=== PATIENT | male | born 1940 | race Caucasian/White ===

== ENCOUNTER 2016-11-28 16:49 | Emergency (ER) | payer OTHER, MEDICARE ==
[~2016-11-28] VITALS: Ht 182.9 cm; Wt 95.0 kg
[~2016-11-28 16:49] MED LIST: ALLERGY EYE D0.025 % OU; AMMONIUM LAC EX; ATORVASTATIN CA40 MG PO; B-121000 MC1 OR; BACLOFEN10 MG PO; BAYER ASPIRIN E81 MG PO; BAYER LOW81 MG OR; BROMOCRIPTIN2.5 M1 PO; COLACE100 MG PO; COZAAR25 MG PO; CRESTOR40 MG OR; DIABETA5 MG OR; DILANTIN100 MG OR; DILANTIN30 MG OR; DITROPAN XL10 MG OR; DITROPAN XL5 MG PO; DITROPAN5 MG OR; DOCUSATE SOD100 M2 OR; EPIPEN0.3 MG IM; FINASTERIDE5 MG OR; FINASTERIDE5 MG PO; FOLIC ACID1 MG PO; GLUCOPHAGE1000 MG OR; GLUCOTROL XL2.5 MG PO; GLYBURIDE2.5 MG OR; KEPPRA500 M1 OR; LEVETIRACETAM500 MG PO; LORTAB 1010 MG PO; LORTAB 7.5 PO; LOSARTAN POT25 MG PO; MAGNESIUM-OX400 MG PO; MELOXICAM7.5 MG PO; METFORMIN1000 MG OR; METFORMIN500 MG PO; NASONEX50 MCG/AC; NASONEX50 MCG/AC NAS; OMEPRAZOLE20 MG OR; OMEPRAZOLE20 MG PO; OXYBUTYNIN5 M1 OR; PAIN RELIEF325 MG OR; PEG 401 OU; PERCOCET 5/325M1 TAB OR; PLAVIX75 MG PO; PREMIUM LIDOCAINE5 % TD; PRILOSEC20 MG/CAP PO; PROSCAR OR; RELIEF PO; RESTORIL30 MG OR; SERTRALINE50 MG OR; SKELAXIN800 MG OR; TEMAZEPAM30 MG PO; TYLENOL325 MG PO; ULTRAM50 M1 PO; ULTRAM50 MG OR; VITAMIN B-12500 MCG PO; VITAMIN D-31000 UNI1 PO; VITAMIN D3400 UNIT OR; VYTORIN1 TA1 OR; XANAX0.25 MG PO; ZOLOFT50 MG PO; [UNRECOGNIZED DRUG - OTHER] DT; [UNRECOGNIZED DRUG - OTHER] MT; [UNRECOGNIZED DRUG - OTHER] OR; [UNRECOGNIZED DRUG - OTHER] PO
[2016-11-28] MEDS ORDERED: TRAMADOL HYDROC50 MG PO (18:32)
[2016-11-28 18:52] VITALS: BP 145/87
== END 2016-11-28 18:52 | disposition home or self-care (01) | DRG 156 ==
LOC: ED 16:49
DX: S02.2XXA Fracture of nasal bones, initial encounter for closed fracture (principal); S00.83XA Contusion of other part of head, initial encounter; W05.0XXA Fall from non-moving wheelchair, initial encounter; Y93.E9 Activity, other interior property and clothing maintenance; Y92.009 Unspecified place in unspecified non-institutional (private) residence as the place of occurrence of the external cause

== ENCOUNTER 2018-09-06 04:11 | Observation (INO) | payer OTHER, MEDICARE ==
[~2018-09-06] VITALS: Ht 182.9 cm; Wt 91.3 kg
[~2018-09-06 04:11] MED LIST changes: +TRAMADOL HYDROC50 MG PO
--- NOTE | 2018-09-06 04:37 | NUR ---
ASSISTED PT OUT OF CAR. TO RM 9 EKG ACCOMPLISHED. PT C/O EPIGASTRIC PAIN SINCE YESTERDAY.
[2018-09-06 04:52] LABS: HEMATOCRIT 46.2 % (39.0-50.0); HEMOGLOBIN 14.9 g/dl (14.0-18.0); IMMATURE GRANULOCYTES 0.7 % (0.0-5.0); MEAN CORPUSCULAR HGB 28.7 pG CALC (26.0-32.0); MEAN CORPUSCULAR HGB CONC 32.3 g/L CALC (32.0-36.0); NEUT# 5.36 thou/uL (1.82-7.42); RED BLOOD COUNT 5.19 mill/uL (4.70-6.10); RED CELL DISTRI WIDTH 12.9 % (11.5-15.5)
[2018-09-06 05:06] LABS: ALBUMIN 4.1 g/dL (3.2-5.0); ALKALINE PHOSPHATASE 62 u/l (38-126); AMYLASE 40 u/l (30-110); ANION GAP 15 (6-22 (CALC)); BILIRUBIN, TOTAL 0.5 mg/dL (0.0-1.4); BUN 12 mg/dL (8-23); BUN/CREATININE RATIO 19 (12-20 (CALC)); CARBON DIOXIDE 24 mmol/l (22-30); CHLORIDE 105 mmol/l (95-108); CREATININE 0.6 mg/dL (0.7-1.3); GFR > 60 ML/MIN (>=60 (CALC)); GFR FOR AFR.AMER. > 60 ML/MIN (>=60 (CALC)); LIPASE 53 u/l (23-300); POTASSIUM 4.6 mmol/l (3.5-5.1); SGOT/AST 26 u/l (19-48); SODIUM 140 mmol/l (137-146); TOTAL PROTEIN 7.1 g/dL (6.3-8.2)
--- NOTE | 2018-09-06 05:10 | NUR ---
W/P/D SKIN NO N/V VOIDS 200CC LT CLEAR YELLOW URINE.REPOSITIONED IN BED WARM BLANKET
[2018-09-06] MEDS ORDERED: AVODART0.5 MG PO (05:31)
[2018-09-06] MEDS ORDERED: GABAPENTIN600 MG PO (05:31)
[2018-09-06 05:44] LABS: INTERNATIONAL NORMALIZED RATIO 2.9 RATIO (0.7-1.3); PROTHROMBIN TIME 29.8 SECONDS (9.0-12.5)
--- NOTE | 2018-09-06 06:43 | NUR ---
NO V,NO C/O PAIN W/P/D SKIN IN NO APPARENT DISCOMFORT OR DISTRESS
[2018-09-06 06:50] LABS: URINE BILIRUBIN - DIPSTICK NEGATIVE (NEGATIVE); URINE BLOOD DIPSTICK NEGATIVE (NEGATIVE); URINE COLOR YELLOW; URINE GLUCOSE - DIPSTICK NEGATIVE (NEGATIVE); URINE KETONE NEGATIVE (NEGATIVE); URINE LEUK ESTERASE NEGATIVE (NEGATIVE); URINE NITRITE - DIPSTICK NEGATIVE (Negative); URINE PROTEIN - DIPSTICK NEGATIVE (NEG-TRACE); URINE SPECIFIC GRAVITY <=1.005; URINE UROBILINOGEN - DIPSTICK 0.2 E.U./dL (0.2)
--- NOTE | 2018-09-06 06:51 | NUR ---
REPORT RECEIVED FROM FABRICE DOZIER.
[2018-09-06 06:56] LABS: MYOGLOBIN 36 ng/mL (0 - 121)
--- NOTE | 2018-09-06 07:08 | NUR ---
AT BEDSIDE TO DISCUSS RESULTS.
--- NOTE | 2018-09-06 07:15 | NUR ---
PT REPORT RECEIVED FROM FABRICE HARRIS. PT RESTING IN BED. NO S/S OF DISTRESS. CALL LIGHT IN REACH. WILL CONTINUE TO MONITOR.
--- NOTE | 2018-09-06 07:18 | NUR ---
PATIENT RESTING ON STRETCHER ALERT AND ORIENTED X3, REPORTS EPIGASTIC PAIN 5/10 STARTING LAST PM. INFORMED OF PLAN OF CARE. VERBAL UNDERSTANDING. AT BEDSIDE. WILL CONTINUE TO MONITOR.
--- NOTE | 2018-09-06 07:39 | NUR ---
REPORT GIVEN TO STEF MATA.
--- NOTE | 2018-09-06 07:45 | NUR ---
PATIENT TRANSPORTED TO [facility] VIA STRETCHER WITH TELE IN PLACE. STEF MATA AT BEDSIDE. CARE RELINQUISED. ALL BELONGINGS SENT TO [facility] WITH PATIENT.
--- NOTE | 2018-09-06 08:55 | NUR ---
PT TRANSPORTED TO [facility] VIA STRETCHER ACCOMPIANED BY FABRICE CAZARES AND SPOUSE. PT TRANSFERRED TO BED FROM STRETCHER W/ ASSISTANCE OF STAFF. VS DONE. ASSESSMENT COMPLETE. PT A/O X3. HX OF CVA, RT SIDED PARALYSIS. SPEECH IS SLIGHTLY SLUURED. PT ALSO HAS DYSPHASIA. PERRLA. RESP EVEN AND UNLABORED. LUNG SOUNDS CLEAR. BOWEL SOUNDS ACTIVE X4. PT C/O SOME EPIGASTRIC PAIN. LAST BM 09/05/18. STRONG RADIAL AND PEDAL PULSES. PT DOES HAVE SOME HEALED SCARS TO BOTH KNEES AND DOWN RT LEG. PT DENIES ANY FURTHER NEEDS. POC DISCUSSED. SAFETY PRECAUTIONS IN PLACE. CALL LIGHT IN REACH. WILL CONTINUE TO MONITOR.
--- NOTE | 2018-09-06 12:39 | NUR ---
PT RESTING IN BED. TELE IN PLACE. NO C/O PAIN OR NEEDS. CALL LIGHT IN REACH. WILL CONTINUE TO MONITOR.
[2018-09-06 15:38] VITALS: BP 121/62
--- NOTE | 2018-09-06 18:20 | NUR ---
PT TRANSPORTED TO CT VIA WHEELCHAIR ACCOMPIANED BY FIELD REPRESENTATIVES DIRECTOR IN STABLE CONDITION
--- NOTE | 2018-09-06 18:42 | NUR ---
PT TRANSPORTED BACK FROM CT VIA WHEELCHAIR ACCOMPIANED BY LEIF
[2018-09-06 18:53] VITALS: BP 116/62
--- NOTE | 2018-09-06 19:45 | NUR ---
PATIENT RESTING IN BED AT THIS TIME-AWAKE ALERT AND ORIENTEDX3. AT BEDSIDE. PATIENT WITH H/O CVA WITH RIGHT SIDE DEFICIT. RIGHT HAND CONTRACTURE. SLIGHTLY SLURRED SPEECH. PATIENT ALSO WITH HISTORY OF SEIZURES AND SIDERAILS PADDED FOR SEIZURE PRECAUTIONS. TELE MONITOR IN PLACE. IV SITE TO RIGHT AC-SITE IS HEALTHY WITH GOOD BLOOD RETURN. PATIENT DENIES CHEST PAIN BUT STATES THAT HE HAS EPIGASTRIC/ABD PAIN. ABD IS SOFT WITH BS+. LAST BM WAS YESTERDAY. SAFETY PRECAUTIONS REINFORCED. CALL LIGHT IN REACH. WILL CONT TO MONITOR
--- NOTE | 2018-09-06 21:40 | NUR ---
PATIENT CALLED AND ASSISTED TO THE BR WITHMAX ASSIST AND WALKER. PATIENT HAD LOOSE BM AND VOIDED 150CC IN THE URINAL. ASSISTED BACK TO BED. BS TONIGHT WAS 114-HS SNACK PROVIDED AND PATIENT DID EAT. SAFETY PRECAUTIONS REINFORCED.CALL LIGHT IN REACH. WILL CONT TO MONITOR.
[2018-09-06 23:59] VITALS: BP 109/66
--- NOTE | 2018-09-06 23:59 | NUR ---
APPEARS SLEEPING AT THIS TIME-EYES CLOSED AND RESP EVEN AND UNLABORED. CALL LIGHT IN REACH. WILL CONT TO MONITOR.
[2018-09-07 03:57] VITALS: BP 103/59
--- NOTE | 2018-09-07 05:17 | NUR ---
PATIENT INCONT/SPILLED URINAL IN BED. PATIENT WAS GIVEN COMPLETE BED BATH AND LINEN CHANGE BY MANAGER WELDING'S. PATIENT DID HAVE 400CC IN THE URINAL. TELE MONITOR IN PLACE. SAFETY PRECAUTIONS REINFORCED. CALL LIGHT IN REACH. WILL CONT TO MONITOR.
[2018-09-07 06:07] LABS: HEMATOCRIT 42.1 % (39.0-50.0); HEMOGLOBIN 13.4 g/dl (14.0-18.0); IMMATURE GRANULOCYTES 0.1 % (0.0-5.0); MEAN CORPUSCULAR HGB 28.3 pG CALC (26.0-32.0); MEAN CORPUSCULAR HGB CONC 31.8 g/L CALC (32.0-36.0); NEUT# 3.96 thou/uL (1.82-7.42); RED BLOOD COUNT 4.73 mill/uL (4.70-6.10); RED CELL DISTRI WIDTH 12.9 % (11.5-15.5)
[2018-09-07 06:26] LABS: ALBUMIN 3.3 g/dL (3.2-5.0); ALKALINE PHOSPHATASE 54 u/l (38-126); ANION GAP 9 (6-22 (CALC)); BILIRUBIN, TOTAL 0.8 mg/dL (0.0-1.4); BUN 10 mg/dL (8-23); BUN/CREATININE RATIO 17 (12-20 (CALC)); CARBON DIOXIDE 26 mmol/l (22-30); CHLORIDE 108 mmol/l (95-108); CREATININE 0.6 mg/dL (0.7-1.3); GFR > 60 ML/MIN (>=60 (CALC)); GFR FOR AFR.AMER. > 60 ML/MIN (>=60 (CALC)); MAGNESIUM 1.6 mg/dL (1.6-2.3); POTASSIUM 3.9 mmol/l (3.5-5.1); SGOT/AST 20 u/l (19-48); SODIUM 140 mmol/l (137-146); TOTAL PROTEIN 5.8 g/dL (6.3-8.2)
--- NOTE | 2018-09-07 07:00 | NUR ---
PT REPORT RECEIVED FROM FABRICE HARRIS. PT SLEEPING. NO S/S OF DISTRESS. CALL LIGHT IN REACH. WILL CONTINUE TO MONITOR
[2018-09-07 07:58] VITALS: BP 151/83
--- NOTE | 2018-09-07 07:58 | NUR ---
PT A/O X3. SPEECH IS SLURRED DUE TO HX OF CVA. PT HAS DYSPHASIA. RESP EVEN AND UNLABORED. LUNG SOUNDS CLEAR. TELE IN PLACE. BOWEL SOUNDS ACTIVE X4. PT C/O SHARP EPIGASTRIC PAIN AND SLIGHT SOB. MEDICTAED W/ LORTAB 10 PO. REPOSITIONED FOR COMFORT. STRONG RADIAL PULSES. #20 RAC. FLUSHED AND PATENT. WEAK PEDAL PULSES. PT RT SIDE IS FLACCID DUE TO CVA. SKIN INTACT. PT DENIES ANY FURTHER NEEDS. POC DISCUSSED. SAFETY PRECAUTIONS IN PLACE. SEIZURE PRECAUTIONS. CALL LIGHT IN REACH. WILL CONTINUE TO MONITOR.
[2018-09-07] MEDS ORDERED: PROTONIX40 M2 PO (11:31)
[2018-09-07 11:44] LABS: INTERNATIONAL NORMALIZED RATIO 1.2 RATIO (0.7-1.3); PROTHROMBIN TIME 12.9 SECONDS (9.0-12.5)
--- NOTE | 2018-09-07 11:51 | NUR ---
PT SITTNG IN BED EATING LUNCH. PT STATES EPIGASTRIC PAIN IS NOW A 5 OUT OF 10 ON PAIN SCALE. MEDICATED W/ GAVIN MOUTHWASH. PROTONIX 40 MG IV. RELAXATION TECHNIQUES IN PLACE. TELE IN PLACE. CALL LIGHT IN REACH. AT BEDSIDE. WILL CONTINUE TO MONITOR
--- NOTE | 2018-09-07 13:06 | NUR ---
D/C INSTRUCTIONS DISCUSSED W/ PT AND . BOTH STATE UNDERSTANDING. PT IV REMOVED. CATHETER INTACT. PT GETTING DRESSED AT THIS TIME. TO BE WHEELED DOWN VIA WC BY VOLUNTEER WHEN READY
--- NOTE | 2018-09-07 13:30 | NUR ---
Discharge instructions given. Patient verbalizes understanding of same. Discharged in stable condition via Wheelchair to Home with spouse. All belongings sent with pt.
== END 2018-09-07 13:30 | disposition home or self-care (01) | DRG 313 ==
LOC: ED 04:11 → ED-I 04:20 → ED 04:20 → ED-I 04:20 → ED 07:04 → MS2 07:05
PROVIDERS: Emergency Medicine; ADMIT Internal Medicine Nephrology; ATTEND Internal Medicine Nephrology
DX: R07.89 Other chest pain (principal); I69.351 Hemiplegia and hemiparesis following cerebral infarction affecting right dominant side; D68.9 Coagulation defect, unspecified; I10 Essential (primary) hypertension; E78.5 Hyperlipidemia, unspecified; K21.9 Gastro-esophageal reflux disease without esophagitis; F41.9 Anxiety disorder, unspecified; F32.9 Major depressive disorder, single episode, unspecified; E11.40 Type 2 diabetes mellitus with diabetic neuropathy, unspecified; I69.322 Dysarthria following cerebral infarction; N40.0 Benign prostatic hyperplasia without lower urinary tract symptoms; D69.6 Thrombocytopenia, unspecified; E55.9 Vitamin D deficiency, unspecified; R32 Unspecified urinary incontinence; Z95.828 Presence of other vascular implants and grafts; Z86.718 Personal history of other venous thrombosis and embolism; Z86.711 Personal history of pulmonary embolism
CPT/HCPCS: S0164

== ENCOUNTER 2018-10-12 14:31 | Emergency (ER) | payer OTHER, MEDICARE ==
[~2018-10-12] VITALS: Ht 182.9 cm; Wt 100.0 kg
[~2018-10-12 14:31] MED LIST changes: +AVODART0.5 MG PO; +GABAPENTIN600 MG PO; +PROTONIX40 M2 PO
[2018-10-12] MEDS ORDERED: BROMOCRIPTIN2.5 M1 PO (15:00)
[2018-10-12] MEDS ORDERED: VITAMIN B PO (15:04)
[2018-10-12] MEDS ORDERED: AVODART0.5 MG PO (15:08)
[2018-10-12] MEDS ORDERED: ALLERGY NA50 MCG/ACT NAB (15:12)
[2018-10-12] MEDS ORDERED: MAGNESIUM400 M1 PO (15:15)
[2018-10-12] MEDS ORDERED: DITROPAN PO (15:17)
[2018-10-12] MEDS ORDERED: PYRIDOXINE PO (15:18)
[2018-10-12] MEDS ORDERED: SERTRALINE50 MG PO (15:19)
[2018-10-12] MEDS ORDERED: SUCRALFATE1 GM/10 ML PO (15:21)
[2018-10-12] MEDS ORDERED: PANTOPRAZOLE SO40 M1 PO (15:22)
[2018-10-12 15:38] VITALS: BP 129/78
== END 2018-10-12 15:58 | disposition home or self-care (01) | DRG 605 ==
LOC: ED 14:31
DX: S00.03XA Contusion of scalp, initial encounter (principal); S00.01XA Abrasion of scalp, initial encounter; W05.0XXA Fall from non-moving wheelchair, initial encounter; Y93.89 Activity, other specified; Y92.009 Unspecified place in unspecified non-institutional (private) residence as the place of occurrence of the external cause; M25.551 Pain in right hip; I69.392 Facial weakness following cerebral infarction

== ENCOUNTER 2020-09-05 11:05 | Emergency (ER) | payer OTHER, MEDICARE ==
[~2020-09-05] VITALS: Ht 182.9 cm; Wt 93.6 kg
[~2020-09-05 11:05] MED LIST changes: +ALLERGY NA50 MCG/ACT NAB; +DITROPAN PO; +MAGNESIUM400 M1 PO; +PANTOPRAZOLE SO40 M1 PO; +PYRIDOXINE PO; +SERTRALINE50 MG PO; +SUCRALFATE1 GM/10 ML PO; +VITAMIN B PO
[2020-09-05 12:03] LABS: HEMATOCRIT 40.4 % (39.0-50.0); HEMOGLOBIN 12.6 g/dl (14.0-18.0); MEAN CELL VOLUME 88.6 fL CALC (80.0-100.0); MEAN CORPUSCULAR HGB 27.6 pG CALC (26.0-32.0); MEAN CORPUSCULAR HGB CONC 31.2 g/dL CAL (32.0-36.0); NEUT# 3.67 thou/uL (1.82-7.42); RED BLOOD COUNT 4.56 mill/uL (4.70-6.10); RED CELL DISTRI WIDTH 13.7 % (11.5-15.5)
[2020-09-05 12:18] LABS: INTERNATIONAL NORMALIZED RATIO 1.2 RATIO (0.7-1.3); PROTHROMBIN TIME 12.1 SECONDS (9.0-12.5)
[2020-09-05 12:24] LABS: ALBUMIN 3.5 g/dL (3.2-5.0); ALKALINE PHOSPHATASE 59 u/l (38-126); ANION GAP 10 (6-22 (CALC)); BILIRUBIN, TOTAL 0.5 mg/dL (0.0-1.4); BUN 9 mg/dL (8-23); BUN/CREATININE RATIO 16 (12-20 (CALC)); CARBON DIOXIDE 27 mmol/l (22-30); CHLORIDE 108 mmol/l (95-108); CREATININE 0.6 mg/dL (0.7-1.3); GFR > 60 ML/MIN (>=60 (CALC)); GFR FOR AFR.AMER. > 60 ML/MIN (>=60 (CALC)); POTASSIUM 4.3 mmol/l (3.5-5.1); SGOT/AST 18 u/l (19-48); SODIUM 140 mmol/l (137-146)
[2020-09-05 13:06] LABS: URINE BILIRUBIN - DIPSTICK NEGATIVE (NEGATIVE); URINE BLOOD DIPSTICK NEGATIVE (NEGATIVE); URINE GLUCOSE - DIPSTICK NEGATIVE (NEGATIVE); URINE KETONE NEGATIVE (NEGATIVE); URINE LEUK ESTERASE NEGATIVE (NEGATIVE); URINE NITRITE - DIPSTICK NEGATIVE (Negative); URINE PROTEIN - DIPSTICK NEGATIVE (NEG-TRACE); URINE UROBILINOGEN - DIPSTICK 0.2 E.U./dL (0.2)
[2020-09-05 13:07] LABS: URINE COLOR STRAW
[2020-09-05 13:11] VITALS: BP 164/85
[2020-09-05] MEDS ORDERED: ULTRAM50 M1 PO (13:19)
[2020-09-05] MEDS ORDERED: GENTAMICIN SULF5 ML OS (13:19)
[2020-09-05] MEDS ORDERED: ASPIRIN EC LOW81 MG PO (14:46)
[2020-09-05] MEDS ORDERED: TYLENOL325 M2 PO (14:46)
[2020-09-05] MEDS ORDERED: ATORVASTATIN CA80 MG PO (14:47)
[2020-09-05] MEDS ORDERED: BACLOFEN10 MG PO (14:47)
[2020-09-05] MEDS ORDERED: CALCIUM 600 +600 MG PO (14:48)
[2020-09-05] MEDS ORDERED: EQL VITAMIN B500 MCG PO (14:49)
[2020-09-05] MEDS ORDERED: CORRECTOL100 MG PO (14:50)
[2020-09-05] MEDS ORDERED: SENNA-TABS8.6 MG PO (14:50)
[2020-09-05] MEDS ORDERED: VOLTAREN1%GEL TOP (14:50)
[2020-09-05] MEDS ORDERED: FLONASE AL50 MCG/AC1 (14:52)
[2020-09-05] MEDS ORDERED: GLIPIZIDE5 MG PO (14:53)
[2020-09-05] MEDS ORDERED: GABAPENTIN600 MG PO (14:53)
[2020-09-05] MEDS ORDERED: MAG OXIDE400 MG PO (14:54)
[2020-09-05] MEDS ORDERED: LEVETIRACETAM500 M1 PO (14:54)
[2020-09-05] MEDS ORDERED: ANTI-DIARRHE2 M1 PO (14:54)
[2020-09-05] MEDS ORDERED: LOSARTAN POTASS25 MG PO (14:56)
[2020-09-05] MEDS ORDERED: METFORMIN500 M2 PO (15:02)
== END 2020-09-05 13:20 | disposition home or self-care (01) | DRG 125 ==
LOC: ED 11:05
PROVIDERS: Emergency Medicine
DX: H57.11 Ocular pain, right eye (principal); I69.151 Hemiplegia and hemiparesis following nontraumatic intracerebral hemorrhage affecting right dominant side; I10 Essential (primary) hypertension; E11.9 Type 2 diabetes mellitus without complications; Z86.711 Personal history of pulmonary embolism; Z86.718 Personal history of other venous thrombosis and embolism; Z79.84 Long term (current) use of oral hypoglycemic drugs

== ENCOUNTER 2021-06-02 12:01 | Inpatient (IN) | payer OTHER, MEDICARE ==
[~2021-06-02] VITALS: Ht 182.9 cm; Wt 70.0 kg
[~2021-06-02 12:01] MED LIST changes: +ANTI-DIARRHE2 M1 PO; +ASPIRIN EC LOW81 MG PO; +ATORVASTATIN CA80 MG PO; +CALCIUM 600 +600 MG PO; +CORRECTOL100 MG PO; +EQL VITAMIN B500 MCG PO; +FLONASE AL50 MCG/AC1; +GENTAMICIN SULF5 ML OS; +GLIPIZIDE5 MG PO; +LEVETIRACETAM500 M1 PO; +LOSARTAN POTASS25 MG PO; +MAG OXIDE400 MG PO; +METFORMIN HYDR850 MG PO; +SENNA-TABS8.6 MG PO; +TYLENOL325 M2 PO; +VOLTAREN1%GEL TOP
[2021-06-02 12:27] LABS: HEMOGLOBIN 10.8 g/dl (14.0-18.0); IMMATURE GRANULOCYTES 1.2 % (0.0-5.0); MEAN CELL VOLUME 84.6 fL CALC (80.0-100.0); MEAN CORPUSCULAR HGB 26.8 pG CALC (26.0-32.0); MEAN CORPUSCULAR HGB CONC 31.7 g/dL CAL (32.0-36.0); NEUT# 5.1 thou/uL (1.82-7.42); RED BLOOD COUNT 4.03 mill/uL (4.70-6.10); RED CELL DISTRI WIDTH 13.4 % (11.5-15.5)
[2021-06-02 12:46] LABS: ALBUMIN 3.1 g/dL (3.2-5.0); ALKALINE PHOSPHATASE 54 u/l (38-126); ANION GAP 12 (6-22 (CALC)); BILIRUBIN, TOTAL 1.1 mg/dL (0.0-1.4); BUN 15 mg/dL (8-23); BUN/CREATININE RATIO 27 (12-20 (CALC)); CARBON DIOXIDE 23 mmol/l (22-30); CHLORIDE 98 mmol/l (95-108); CREATININE 0.6 mg/dL (0.7-1.3); GFR > 60 ML/MIN (>=60 (CALC)); GFR FOR AFR.AMER. > 60 ML/MIN (>=60 (CALC)); POTASSIUM 3.5 mmol/l (3.5-5.1); SGOT/AST 30 u/l (19-48); SODIUM 129 mmol/l (137-146)
[2021-06-02 12:50] LABS: HEMATOCRIT 34.1 % (39.0-50.0)
[2021-06-02] MEDS ORDERED: BROMOCRIPTINE2.5 MG PO (15:11)
[2021-06-02] MEDS ORDERED: DUTASTERIDE0.5 MG PO (15:12)
[2021-06-02] MEDS ORDERED: MYRBETRIQ50 MG PO (15:12)
--- NOTE | 2021-06-02 16:24 | NUR ---
REPORTED GIVEN TO FABRICE REGALADO FABIANO
--- NOTE | 2021-06-02 16:30 | NUR ---
SN NOTIFIED DR SHIELDS OF BP
[2021-06-02 16:39] VITALS: BP 154/106
[2021-06-02 19:00] VITALS: BP 153/85
--- NOTE | 2021-06-02 19:00 | NUR ---
REPORT RECEIVED FROM Nani ANDREWS RN, CARE OF PT ASSUMED AT THIS TIME.
--- NOTE | 2021-06-02 20:03 | NUR ---
POINT OF CARE GLUCOSE 285mg/dl.
--- NOTE | 2021-06-02 20:36 | NUR ---
SP02 90% WITH 02 @4L/M VIA NC. RESPIRATIONS REGULAR AND UNLABORED. PT TOLERATED PO MEDS WELL WITH SIPS OF THIN LIQUIDS. HOB UP 90 DEGREES FOR ORAL INTAKE. ASSISTED PT TO ADJUST HOB TO HIS COMFORT. R-SIDE PARAPLEGIA SEQUELAE OF PAST CVA. RUE ELEVATED ON PILLOW FOR COMFORT.
[2021-06-03] VITALS: BP 120/63
[2021-06-03 04:00] VITALS: BP 119/63
--- NOTE | 2021-06-03 04:34 | NUR ---
Nani MCMANUS, PROVIDER RELATIONS MANAGER IN ROOM COLLECTING AM LABS.
[2021-06-03 05:55] LABS: IMMATURE GRANULOCYTES 1.4 % (0.0-5.0); MEAN CELL VOLUME 83.5 fL CALC (80.0-100.0); MEAN CORPUSCULAR HGB 26.7 pG CALC (26.0-32.0); NEUT# 5.21 thou/uL (1.82-7.42); RED BLOOD COUNT 4.98 mill/uL (4.70-6.10); RED CELL DISTRI WIDTH 13.5 % (11.5-15.5)
[2021-06-03 06:10] LABS: HEMATOCRIT 41.6 % (39.0-50.0); HEMOGLOBIN 13.3 g/dl (14.0-18.0)
[2021-06-03 06:19] LABS: ALBUMIN 2.9 g/dL (3.2-5.0); ALKALINE PHOSPHATASE 53 u/l (38-126); ANION GAP 13 (6-22 (CALC)); BILIRUBIN, TOTAL 0.7 mg/dL (0.0-1.4); BUN 18 mg/dL (8-23); BUN/CREATININE RATIO 34 (12-20 (CALC)); C-REACTIVE PROTEIN 7.6 mg/dL (0-0.9); CARBON DIOXIDE 24 mmol/l (22-30); CHLORIDE 100 mmol/l (95-108); CREATININE 0.5 mg/dL (0.7-1.3); GFR > 60 ML/MIN (>=60 (CALC)); GFR FOR AFR.AMER. > 60 ML/MIN (>=60 (CALC)); SGOT/AST 24 u/l (19-48); SODIUM 133 mmol/l (137-146); TOTAL PROTEIN 5.7 g/dL (6.3-8.2)
--- NOTE | 2021-06-03 07:15 | NUR ---
PT LYING IN BED ASLEEP, AWOKEN TO SN ASSESSMENT. O2 86% ON 4L O2, INCREASED TO 6 LPM, WILL RECHECK AND CONTINUE TO MONITOR.
[2021-06-03 07:30] VITALS: BP 168/87
--- NOTE | 2021-06-03 09:06 | NUR ---
LEFT MESSAGE FOR TO BRING IN PT MEDS FROM HOME, MYBETRIG AND BROMOCRIPTINE.
[2021-06-03 10:55] VITALS: BP 143/87
[2021-06-03 14:15] VITALS: BP 171/81
[2021-06-03 19:00] VITALS: BP 127/70
--- NOTE | 2021-06-03 19:40 | NUR ---
ASSESSMENT COMPLETE AT THIS TIME. PATIENT ALERT AND ORIENTED. RIGHT SIDE FLACCID. ANSWERS APPROPRIATELY, BUT NEEDS TIME TO ANSWER. PLEASANT AND COOPERATIVE. DENIES ANY PAIN OR DISCOMFORT. CALL LIGHT AND BELONGINGS IN REACH.
[2021-06-04] VITALS: BP 146/73
[2021-06-04 00:37] LABS: URINE BILIRUBIN - DIPSTICK NEGATIVE (NEGATIVE); URINE BLOOD DIPSTICK NEGATIVE (NEGATIVE); URINE COLOR YELLOW; URINE GLUCOSE - DIPSTICK >=1000 mg/dL (NEGATIVE); URINE KETONE 15 mg/dL (NEGATIVE); URINE LEUK ESTERASE NEGATIVE (NEGATIVE); URINE NITRITE - DIPSTICK NEGATIVE (Negative); URINE PROTEIN - DIPSTICK NEGATIVE (NEG-TRACE); URINE SPECIFIC GRAVITY 1.015
--- NOTE | 2021-06-04 02:25 | NUR ---
RESTING IN BED. NO SIGNS OR SYMPTOMS OF PAIN OR DISTRESS NOTED.
[2021-06-04 04:00] VITALS: BP 143/65
--- NOTE | 2021-06-04 04:55 | NUR ---
NO COMPLAINTS VOICED FROM PATIENT. ASKED FOR SIPS OF WATER AND HELPED PATIENT. BED IN LOWEST POSITION. CALL LIGHT ON PATIENTS LEFT SIDE OF BED BY HIS LEFT HAND SO HE CAN UTILIZE IT.
[2021-06-04 05:39] LABS: HEMOGLOBIN 12.5 g/dl (14.0-18.0); IMMATURE GRANULOCYTES 1.4 % (0.0-5.0); MEAN CELL VOLUME 83.5 fL CALC (80.0-100.0); MEAN CORPUSCULAR HGB 26.8 pG CALC (26.0-32.0); MEAN CORPUSCULAR HGB CONC 32.1 g/dL CAL (32.0-36.0); NEUT# 9.32 thou/uL (1.82-7.42); RED BLOOD COUNT 4.67 mill/uL (4.70-6.10); RED CELL DISTRI WIDTH 13.5 % (11.5-15.5)
[2021-06-04 06:15] LABS: ALBUMIN 2.8 g/dL (3.2-5.0); ALKALINE PHOSPHATASE 47 u/l (38-126); ANION GAP 8 (6-22 (CALC)); BILIRUBIN, TOTAL 0.7 mg/dL (0.0-1.4); BUN 19 mg/dL (8-23); BUN/CREATININE RATIO 39 (12-20 (CALC)); C-REACTIVE PROTEIN 4.9 mg/dL (0-0.9); CARBON DIOXIDE 27 mmol/l (22-30); CHLORIDE 99 mmol/l (95-108); CREATININE 0.5 mg/dL (0.7-1.3); GFR > 60 ML/MIN (>=60 (CALC)); GFR FOR AFR.AMER. > 60 ML/MIN (>=60 (CALC)); POTASSIUM 3.7 mmol/l (3.5-5.1); SGOT/AST 19 u/l (19-48); SODIUM 130 mmol/l (137-146); TOTAL PROTEIN 5.5 g/dL (6.3-8.2)
[2021-06-04 06:55] VITALS: BP 142/72
--- NOTE | 2021-06-04 06:55 | NUR ---
PATIENT LAYING IN BED AT THIS TIME ALERT AND ORIENTED X 3 PATIENT [place] ANY PAIN AT THIS TIME PATIENT ON 02 N/C HI-FLOW AT 10L AND SPO2 IS 84%. O2 TITRTED TO 12L HI-FLOW AND SPO2 WENT TO 92%. EMPLOYEE BENEFITS SPECIALIST DONE AT THIS TIME SEE INTERVENTIONS. ABRAM RECEIVED 5 UNITS OF HUMALOG FOR ACCU-CHECK OF 262. LUNG WEST ARE CLEAR IN UPPER WEST AND DIMINISHED IN LOWER WEST. PATIENT HAS NOTED RIGHT SIDE WEAKNESS DUE TO PAST STROKE. PATIENT HAS TELE MONITOR IN PLACE AND IS BEING MONITORED BY ED. SIDERAILS ARE UP CALL LIGHT WITHIN REACH
--- NOTE | 2021-06-04 09:17 | NUR ---
PHYSICAL THERAPY IN TO HELP ASSIST PATIENT TO CHAIR AT THIS TIME. PATIENT WAS ABLE TO STAND AND PIVOT TO CHAIR WITHOUT INCIDENT. PATIENT CALL LIGHT AND PHONE AND PERSONAL ITEMS WITHIN REACH. PATIENT O2 STATE IS 92% DURING MOVE ON 12L OF HI-FLOW O2. WILL CONTINUE TO MONITOR.
--- NOTE | 2021-06-04 09:40 | NUR ---
DR. SOLER AND STEPHEN BRASHER ARPN IN TO SEE PATIENT AT THIS TIME.
--- NOTE | 2021-06-04 10:00 | NUR ---
PATIENT REMAINS UP IN CHAIR AT THIS TIME. DENIES ANY NEEDS AT THIS TIME. CALL LIGHT WITHIN REACH AND PERSONAL ITEMS.
[2021-06-04 10:30] VITALS: BP 142/72
--- NOTE | 2021-06-04 11:15 | NUR ---
PATIENT GIVEN 5 UNITS OF HUMALOG FOR COVERAGE OF ACCU CHECK OF 245.
--- NOTE | 2021-06-04 11:37 | NUR ---
PATIENT REMAINS UP IN CHAIR AT THIS TIME. PATIENT IS EATING LUNCH. PATIENT REMAINS ON 12L OF HI-FLOW O2 AND SPO2 CURRENTLY AT THIS TIME IS 92%. PATIENT DENIES ANY PAIN AND OR NEEDS CURRENTLY WILL CONTINUE TO MONITOR.
--- NOTE | 2021-06-04 15:10 | NUR ---
OCCUPATIONAL THERAPY IN TO SEE PATIENT AT THIS TIME.
[2021-06-04 15:40] VITALS: BP 144/69
--- NOTE | 2021-06-04 16:07 | NUR ---
PATIENT RESTING IN BED AT THIS TIME. PATIENT REMAINS ON 12L OF HIGH-FLOW 02 AND SPO2 IS CURRENTLY 92% AT THIS TIME. PATIENT DENIES ANY PAIN AT THIS TIME. PATIENT REMAINS ON TELE MONITOR AND IS BEING MONITORED BY ED. PATIENT ALSO GIVEN AN INSENTIVE SPIROMOTER AND EDUCATED ON ITS USE AND PATIENT DID DEMONSTRATE PROPER USE AT THIS TIME. PATIENT SIDERAILS ARE UP X 2 CALL LIGHT AND PERSONAL BELONGINGS ARE WITHIN REACH.
--- NOTE | 2021-06-04 19:50 | NUR ---
Report received from Arya Hooks Rn
[2021-06-04 20:04] VITALS: BP 159/79
--- NOTE | 2021-06-04 20:40 | NUR ---
Alert and oriented x3. Patient sitting in semi fowlers. Normal heart sounds, last tele reading [id number]. Clear/Dimminished lung sounds, on 12L HF reading 96%. Active bowel sounds throughout all quadrants. Last reported bowel movement 06/03. #18 in LFA Sl, flushed and patent. right sided paralysis noted.Plan of care reviewed with patient, call light and bedside table within reach.
--- NOTE | 2021-06-04 23:30 | NUR ---
Pt sleeping soundly, undisturbed by writter. Call light and bedside table within reach.
[2021-06-05] VITALS: BP 123/57
[2021-06-05 04:00] VITALS: BP 145/70
[2021-06-05 05:55] LABS: HEMATOCRIT 38.2 % (39.0-50.0); HEMOGLOBIN 12.3 g/dl (14.0-18.0); MEAN CORPUSCULAR HGB CONC 32.2 g/dL CAL (32.0-36.0); NEUT# 8.26 thou/uL (1.82-7.42); RED BLOOD COUNT 4.55 mill/uL (4.70-6.10); RED CELL DISTRI WIDTH 13.5 % (11.5-15.5)
[2021-06-05 06:05] LABS: ALBUMIN 2.6 g/dL (3.2-5.0); ALKALINE PHOSPHATASE 42 u/l (38-126); ANION GAP 8 (6-22 (CALC)); BILIRUBIN, TOTAL 0.7 mg/dL (0.0-1.4); BUN 18 mg/dL (8-23); BUN/CREATININE RATIO 38 (12-20 (CALC)); CARBON DIOXIDE 28 mmol/l (22-30); CHLORIDE 98 mmol/l (95-108); CREATININE 0.5 mg/dL (0.7-1.3); GFR > 60 ML/MIN (>=60 (CALC)); GFR FOR AFR.AMER. > 60 ML/MIN (>=60 (CALC)); POTASSIUM 3.8 mmol/l (3.5-5.1); SGOT/AST 21 u/l (19-48); SODIUM 131 mmol/l (137-146); TOTAL PROTEIN 5.2 g/dL (6.3-8.2)
[2021-06-05 06:38] LABS: IMMATURE GRANULOCYTES 1.6 % (0.0-5.0)
--- NOTE | 2021-06-05 08:00 | NUR ---
PT RESTING COMFORTABLE IN BED. PT DENIES AND PAIN OR SOB AT THIS TIME. PT ALERT AND ORIENTED. VS AND ASSESMENT COMPLETE. HR NORMAL. LUNG SOUNDS ARE DIMINISHED. BREATHS ARE EVEN AND UNLABORED, PT WILL CONTINUE ON O2 THERAPY. IV SITE FLUSHED AND IS PATENT. BOWEL SOUNDS ACTIVE. PERIPHERAL PULSES PALPABLE. SAFETY MEASURES ARE IN PLACE. CALL LIGHT WITHIN PATIENTS REACH. WILL MONITOR PATIENT CLOSELY
--- NOTE | 2021-06-05 09:30 | NUR ---
Pt would benefit from an ST evaluation given hx of stroke and OT reports of oral residue after lunch yesterday during treatment. Will discuss with medical team.
[2021-06-05 11:33] VITALS: BP 141/73
--- NOTE | 2021-06-05 13:17 | NUR ---
Patient participated with PT intervention today. Patient carried out AROM exercises on the L LE and PROM exercises on the R LE doing: hip flexion, hip adduction, hip abduction, hamstring curls, knee extension, and ankle pumps for 15 reps x 2 sets with constant verbal and tactile cuing to help decrease trick movements and fall risks. Patient participated with log rolling bed mobility ADLs with 1 to 2 reps with constant verbal and tactile cuing to help decrease trick movements and fall risks.
[2021-06-05 16:56] VITALS: BP 138/72
--- NOTE | 2021-06-05 18:55 | NUR ---
Report received from Ivy Moody Rn
[2021-06-05 19:00] VITALS: BP 129/66
--- NOTE | 2021-06-05 19:25 | NUR ---
Alert and oriented x3. Patient sitting in semi fowlers. Normal heart sounds, last tele reading [id number]. Clear/Dimminished lung sounds, on 12L HF reading 94%. Active bowel sounds throughout all quadrants. Last reported bowel movement 06/05. #18 in LFA Sl, flushed and patent. right sided paralysis noted.Plan of care reviewed with patient, call light and bedside table within reach.
[2021-06-06] VITALS (9 sets, daily range): BP systolic 117–165; BP diastolic 61–93
--- NOTE | 2021-06-06 00:15 | NUR ---
Increased oxygen to 14 L via HF NC, related to current saturation of 87%, patient saturation increased to 93%
[2021-06-06 05:13] LABS: HEMATOCRIT 38.9 % (39.0-50.0); HEMOGLOBIN 12.4 g/dl (14.0-18.0); MEAN CORPUSCULAR HGB 26.8 pG CALC (26.0-32.0); MEAN CORPUSCULAR HGB CONC 31.9 g/dL CAL (32.0-36.0); NEUT# 8.4 thou/uL (1.82-7.42); RED BLOOD COUNT 4.63 mill/uL (4.70-6.10); RED CELL DISTRI WIDTH 13.7 % (11.5-15.5)
[2021-06-06 05:35] LABS: ALBUMIN 2.7 g/dL (3.2-5.0); ALKALINE PHOSPHATASE 49 u/l (38-126); ANION GAP 6 (6-22 (CALC)); BILIRUBIN, TOTAL 0.6 mg/dL (0.0-1.4); BUN 16 mg/dL (8-23); BUN/CREATININE RATIO 30 (12-20 (CALC)); C-REACTIVE PROTEIN 2.6 mg/dL (0-0.9); CARBON DIOXIDE 28 mmol/l (22-30); CHLORIDE 100 mmol/l (95-108); CREATININE 0.5 mg/dL (0.7-1.3); GFR > 60 ML/MIN (>=60 (CALC)); GFR FOR AFR.AMER. > 60 ML/MIN (>=60 (CALC)); POTASSIUM 3.6 mmol/l (3.5-5.1); SGOT/AST 23 u/l (19-48); SODIUM 131 mmol/l (137-146); TOTAL PROTEIN 5.3 g/dL (6.3-8.2)
--- NOTE | 2021-06-06 08:00 | NUR ---
PT RESTING COMFORTABLY IN BED. PT ALERT AND ORIENTED. PT DENIES ANY PAIN OR DISCOMFORT AT THIS TIME. VS AND ASSESSMENT COMPLETE. LUNGS DIMINISHED. BREATHS EVEN AND UNLABORED. PT WILL CONTINUE ON O2 THERAPY. SAFETY PRECAUTIONS ARE IN PLACE. CALL LIGHT WITHIN PATIENTS REACH. WILL MONITOR PATIENT CLOSELY
--- NOTE | 2021-06-06 11:52 | NUR ---
Patient participated with PT intervention today. Patient did L LE AROM and R LE PROM exercises doing: hip flexion, hip adduction, hip abduction, heel slides, and ankle pumps for 10 reps x 2 sets with constant verbal and tactile cuing to decrease fall risks and trick movements. Patient participated with log rolling bed mobility and sit to stand push off transfer ADLs with 1 to 2 reps with constant verbal and tactile cuing to help decrease fall risks (with mod A x 1 to 2).
--- NOTE | 2021-06-06 12:00 | NUR ---
PT RESTING COMFORTABLE IN BED. PATIENT HAS NO IMMEDIATE NEEDS AT THIS TIME. WILL CONTINUE TO MONITOR. SAFETY PRECAUTIONS IN PLACE. CALL LIGHT WITHIN PATIENT'S REACH
--- NOTE | 2021-06-06 12:35 | NUR ---
PT GIVEN DISCHARGE INSTRUCTIONS. PT VERBALIZES UNDERSTANDING
--- NOTE | 2021-06-06 13:50 | NUR ---
PT YELLING STATING THAT HIS IV IS BURNING. IV SITE ASSESSED AND IS INFILTRATED. IV REMOVED AND DRESSING APPLIED. WILL ATTEMPT NEW IV START.
--- NOTE | 2021-06-06 16:07 | NUR ---
GAVE REPORT TO ICU NURSE. ALL QUESTIONS ANSWERED
--- NOTE | 2021-06-06 16:10 | NUR ---
REPORT RECIEVED FROM INO PENDLETONStephanie NURSE.
--- NOTE | 2021-06-06 16:50 | NUR ---
PATIENT ARRIVED TO THE FLOOR. A/O, DENIES PAIN AND SOB AT THIS TIME. ON 12L HIGHFLOW NC, O2 SATS 92%. 3MM PERRLA BILATERAL EYES. CLEAR LUNG SOUNDS. ACTIVE BOWEL SOUNDS. SOFT NON TENDER ABDOMEN. UNABLE TO MOVE RIGHT SIDE, DOES HAVE FACIAL DROOP ON THE RIGHT. 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 NO ARM OR LEG DRIFT ON THE LEFT SIDE. HAD A PREVIOUS CVA, HAS RIGHT SIDED WEAKNESS. STRONG PULSES. HAS A HARD TIME SPEAKING, DOES TAKE SOME TIME TO RESPOND, SOMETIMES GETS UPSET WHEN UNABLE TO FINISH HIS SENTENCES. CALL LIGHT EDUCATED. RIGHT ARM ELEVATED. EDEMA ON BILATERAL ARMS 1+. SAFETY MEASURES IN PLACE. CALL LIGHT IN REACH. WILL CONTINUE TO MONITOR PER HOSPITAL'S POLICY.
--- NOTE | 2021-06-06 16:56 | NUR ---
call received from spouse Courtney; passcode verified; update provided including need for transfer to ICU
--- NOTE | 2021-06-06 17:09 | NUR ---
Arturo not awake during rounds at 9am. Unable to return throughout day, will return Wednesday
--- NOTE | 2021-06-06 20:05 | NUR ---
PT EYES WERE CLOSED, BUT AWOKE TO MY VOICE. I OFFERED TO ASSIST PT TO EAT MORE OF HIS DINNER TRAY, REFUSED ANYMORE FOOD, ASSISTED W/PO FLUIDS. ASSISTED REPOSITIONING PT AT THIS TIME.
--- NOTE | 2021-06-06 20:59 | NUR ---
PT MEDICATED ORDERS PROVIDE. V/S ASSESSED. PT CLEANED OF INCONTINENT URINE AND BRIEF REPLACED AT THIS TIME. PT BOOSTED AND POSITIONED TO PREFERENCE AT THIS TIME WITH PILLOWS FOR PRESSURE RELIEF. PT LEFT UPRIGHT IN THE BED EATING A KITKAT CANDY BAR. BST PLACED CLOSE TO LEFT SIDE FOR REACH.
[2021-06-07] VITALS (11 sets, daily range): BP systolic 95–158; BP diastolic 43–81
[2021-06-07 03:40] LABS: HEMATOCRIT 37.8 % (39.0-50.0); HEMOGLOBIN 12.1 g/dl (14.0-18.0); IMMATURE GRANULOCYTES 4.2 % (0.0-5.0); MEAN CELL VOLUME 84.6 fL CALC (80.0-100.0); MEAN CORPUSCULAR HGB 27.1 pG CALC (26.0-32.0); NEUT# 8.15 thou/uL (1.82-7.42); RED BLOOD COUNT 4.47 mill/uL (4.70-6.10); RED CELL DISTRI WIDTH 13.7 % (11.5-15.5)
[2021-06-07 03:55] LABS: ALBUMIN 2.5 g/dL (3.2-5.0); ALKALINE PHOSPHATASE 49 u/l (38-126); ANION GAP 6 (6-22 (CALC)); BILIRUBIN, TOTAL 0.7 mg/dL (0.0-1.4); BUN 15 mg/dL (8-23); BUN/CREATININE RATIO 31 (12-20 (CALC)); CARBON DIOXIDE 25 mmol/l (22-30); CHLORIDE 101 mmol/l (95-108); CREATININE 0.5 mg/dL (0.7-1.3); GFR > 60 ML/MIN (>=60 (CALC)); GFR FOR AFR.AMER. > 60 ML/MIN (>=60 (CALC)); POTASSIUM 4.3 mmol/l (3.5-5.1); SGOT/AST 23 u/l (19-48); SODIUM 128 mmol/l (137-146); TOTAL PROTEIN 5.2 g/dL (6.3-8.2)
--- NOTE | 2021-06-07 04:15 | NUR ---
V/s assessed, pt repositioned.
--- NOTE | 2021-06-07 06:21 | NUR ---
Pt cleaned of incontinent urine and repositioned in the bed. Pt is upright eating crackers, water w/in reach and call light. Pt denied any other needs of assistance at this time.
--- NOTE | 2021-06-07 07:12 | NUR ---
O2 SAT ON 12L HF IS 95%
--- NOTE | 2021-06-07 10:12 | NUR ---
PATIENT IS A/O, 3MM PERRLA BILAT. EYES. DENIES PAIN AT THIS TIME. RIGHT FACIAL DROOP. DOES HAVE A HARD TIME RESPONDING TO QUESTIONS, SOME DELAY. 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 RIGHT LEG AND ARM HE IS UNABLE TO MOVE DUE TO PREVIOUS CVA. SET UP HIS BREAKFAST AND HE IS ABLE TO FEED HIMSELF. CLEAR LUNG SOUNDS. DECREASED O2 TO 9L HIGHFLOW N.C. ACTIVE BOWEL SOUNDS. NON TENDER, OBESE ABDOMEN. EDEMA ON RIGHT LEG, BILAT. ARMS 1/2+. VITALS ARE STABLE. STRONG PULSES. NO ARM OR LEG DRIFT IN THE LEFT SIDE. SAFETY MEASURES IN PLACE. CALL LIGHT AND PERSONAL BELONGINGS IN REACH. WILL CONTINUE TO MONITOR PER HOSPITAL'S POLCIY.
--- NOTE | 2021-06-07 11:19 | NUR ---
PATIENT DAUGHTER ALTHEA CALLED, REQUESTED AN UPDATE, CODE PROVIDED. UPDATE GIVEN.
--- NOTE | 2021-06-07 12:00 | NUR ---
PATIENT IS SLEEPING IN BED
--- NOTE | 2021-06-07 12:32 | NUR ---
call placed to spouse Courtney Cheema as per request; phone passed to Dr Flores
--- NOTE | 2021-06-07 18:04 | NUR ---
PATIENT IS SITTING UP IN BED, DINNER TRAY SET IN FRONT OF HIM.
--- NOTE | 2021-06-07 19:58 | NUR ---
PT APPEARS TO BE SLEEPING AT THIS TIME.
--- NOTE | 2021-06-07 20:30 | NUR ---
PT BEDDING FOUND VERY WET FROM URINE AND IV DISLODGED AND BLOOD RUNNING DOWN THE SIDE OF THE BED AND PUDDLED ONTO THE FLOOR ABOUT A 3X3" AREA. PT PROVIDED BED BATH AND BEDDING AND GOWN REPLACED. PT WAS UNAWARE THAT HIS IV WAS PULLED. 2X ATTEMPTS FOR NEW IV ACCESS AT THIS TIME. PT OXYGEN SAT LEVELS DOWN TO 84-86 THE ENTIRE TIME HE IS BEING CLEANED OF URINE. 02NC HIGH FLOW BACK UP TO 15L TO MAINTAIN 90%SAT LEVEL ONCE PT HAS BEEN REPOSITIONED. ASSISTED HIM WITH PO FLUIDS.
--- NOTE | 2021-06-07 21:35 | NUR ---
PT MEDICATED ORDERS PROVIDE FOR PM MEDICATIONS. ASSISTED W/PO FLUIDS AND SNACKS PLACED AT BEDSIDE PER REQUEST. PT ACCU-CHECK 295 AND INSULIN ADMINISTERED PER SLIDING SCALE. PT REPOSITIONED HAND TO CALL LIGHT AND COOL PACK PLACED ON L.HAND FOR COMFORT FOR DISCOMFORT FROM INFILTRATED IV EARLIER THIS DAY.
[2021-06-08] VITALS (11 sets, daily range): BP systolic 104–152; BP diastolic 48–83
--- NOTE | 2021-06-08 02:25 | NUR ---
Pt appears to be sleeping, no s/o distress noted. Resp even and non-labored. O2 sat 90% on 9LNC High Flow.
--- NOTE | 2021-06-08 05:00 | NUR ---
Pt cleaned of incontinent urine, brief placed and pads to bed changed at this time. Pt assisted with fresh po fluids and positioned for comfort with arms elevated with pillows. BST provided close w/in reach of L.side. Call light placed for reach w/left hand. Pt has difficulty expressing needs, but answers with yes and no answers appropriately.
[2021-06-08 05:21] LABS: HEMATOCRIT 37.5 % (39.0-50.0); HEMOGLOBIN 12.2 g/dl (14.0-18.0); IMMATURE GRANULOCYTES 4.2 % (0.0-5.0); MEAN CELL VOLUME 84.3 fL CALC (80.0-100.0); MEAN CORPUSCULAR HGB 27.4 pG CALC (26.0-32.0); MEAN CORPUSCULAR HGB CONC 32.5 g/dL CAL (32.0-36.0); NEUT# 8.87 thou/uL (1.82-7.42); RED BLOOD COUNT 4.45 mill/uL (4.70-6.10)
[2021-06-08 05:46] LABS: ALBUMIN 2.6 g/dL (3.2-5.0); ALKALINE PHOSPHATASE 43 u/l (38-126); ANION GAP 7 (6-22 (CALC)); BILIRUBIN, TOTAL 0.7 mg/dL (0.0-1.4); BUN 17 mg/dL (8-23); BUN/CREATININE RATIO 31 (12-20 (CALC)); C-REACTIVE PROTEIN 2.3 mg/dL (0-0.9); CARBON DIOXIDE 26 mmol/l (22-30); CHLORIDE 99 mmol/l (95-108); CREATININE 0.5 mg/dL (0.7-1.3); GFR > 60 ML/MIN (>=60 (CALC)); GFR FOR AFR.AMER. > 60 ML/MIN (>=60 (CALC)); POTASSIUM 4.3 mmol/l (3.5-5.1); SGOT/AST 25 u/l (19-48); SODIUM 128 mmol/l (137-146); TOTAL PROTEIN 5.3 g/dL (6.3-8.2)
--- NOTE | 2021-06-08 08:00 | NUR ---
PATIENT IS A/O X3, HAS A HARD TIME TELLING US WHAT HE WANTS. HE HAD A PREVIOUS CVA IN THE PAST RIGHT SIDE IS FLACCID. DOES RESPOND TO OUR QUESTIONS JUST TAKES SOME TIME. 3MM PERRLA BILATERAL EYES. DENIES PAIN AT THIS TIME. CLEAR TO DIMINISHED LUNG SOUNDS. NORMAL SINUS RYTHEM. STABLE VITAL SIGNS. ACTIVE BOWEL SOUNDS. SOFT OBESE ABDOMEN. 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 STRONG PULSES. BREAKFATS SET UP ON TABLE FOR HIM. SCD'S ARE ON AND WORKING. NEW IV PLACED DUE TO NURSES NOT BEING ABLE TO PLACE IV DURING THE NIGHT. NIGHT NURSE STATED THAT HE MIGHTVE RIPPED IT OUT LATE YESTERDAY AFTERNOON. PATIENT IS DRY, DENIES NEEDING TO USE THE URINAL AT THIS TIME. PROVIDED ICE WATER. SAFETY MEASURES IN PLACE. CALL LIGHT IN REACH. WILL CONTINUE TO MONITOR PER [facility]'S POLICY.
--- NOTE | 2021-06-08 08:57 | NUR ---
O2 SAT ON 8L HF 93%
--- NOTE | 2021-06-08 10:00 | NUR ---
PATIENT ASSESSTED ONTO BEDSIDE COMMODE, 88% O2 SATS WITH 14L HFNC.
--- NOTE | 2021-06-08 10:36 | NUR ---
PATIENT'S NEIGHBOR CALLED, DOESNT HAVE THE CODE, NO UPDATES WERE GIVEN.
--- NOTE | 2021-06-08 11:11 | NUR ---
PATIENT'S CALLED, CODE GIVEN, UPDATE WAS PROVIDED,
--- NOTE | 2021-06-08 14:00 | NUR ---
PATIENT EATING HIS LUNCH WATCHING SPORT CHANNEL.
--- NOTE | 2021-06-08 16:00 | NUR ---
PATIENT RESTING IN BED WATCHING TV
--- NOTE | 2021-06-08 17:54 | NUR ---
PATIENT IS SLEEPING.
--- NOTE | 2021-06-08 19:29 | NUR ---
PT WAS ASLEEP I ENTERED THE ROOM, BUT AWOKE TO MY VOICE. DINNER TRAY IS AT BEDSIDE UNTOUCHED, I OFFERED TO HELP HIM EAT, DENIED FOOD RIGHT NOW, LEFT TRAY FOR LATER PREFERENCE. OXYGEN SAT STABLE AT 95% AT 8L, TITRATED DOWN TO 7L WITH 02 SAT LEVELS MAINTAINING AT 93% BRIEF IS CLEAN AND DRY AT THIS TIME. PT HAS A VERY DIFFICULT TIME COMMUNICATING NEEDS, BUT WILL RESPOND CLEARLY WITH YES AND NO RESPONSES WHEN ASKED. I PROVIDED MULTIPLE TIMES FOR HIM TO VOICE NEEDS TELLING HIM TO TAKE HIS TIME AND WAITING FOR RESPONSES, APPEARS TO HAVE DIFFICULTY FORMULATING HIS WORDS.
--- NOTE | 2021-06-08 20:00 | NUR ---
PT USED CALL LIGHT, PT FOUND WITH CHOCOLATE CAKE CRUMBLED FROM HEAD TO TOE. HE HAD ATTEMPTED TO FEED HIMSELF WHILE LAYING IN LOW FOWLERS IN THE BED. BATH PROVIDED W/PERLA-CARE OF INCONTIENT URINE AND NEW BRIEF PROVIDED. PT BOOSTED AND POSITIONED WITH PILLOWS IN THE BED. ARMS ELEVATED. POSITIONED IN HIGH FOWLERS AND DRINKS PLACED W/IN REACH. ACCU-CHECK HAS BEEN ASSESSED AND MEDICATIONS PROVIDED ORDERS PROVIDE FOR EVENING MEDICATIONS. CALL LIGHT IN L.HAND AND PT ASSISTED WITH TV SETTINGS.
[2021-06-09] VITALS (9 sets, daily range): BP systolic 110–157; BP diastolic 50–78
--- NOTE | 2021-06-09 00:58 | NUR ---
pt called to report his bed is wet. Pt was found to have spilled his water in his bed from his pitcher. Pt bedding changed and he was cleaned of incontinent urine at this time, new brief provided. pt has chocolate bar next to his bed and is eating one as I am preparing to leave the room. I provided cup at bedside for better control instead as he was wanting to use the pitcher, but keeps spilling it in the bed.
--- NOTE | 2021-06-09 03:25 | NUR ---
Pt appears to be sleeping, did not awake to my entering the room. Oxygen sat 96% on 4LNC High Flow. No distresses noted at this time. Call light w/in reach of Cori.
--- NOTE | 2021-06-09 05:06 | NUR ---
Pt sleeping, did not awake to my being in the room. v/s assessed, 02 sats 96%, 02 titrated to 3.5LNC High Flow.
[2021-06-09 05:56] LABS: HEMATOCRIT 39.3 % (39.0-50.0); HEMOGLOBIN 12.5 g/dl (14.0-18.0); MEAN CELL VOLUME 84.5 fL CALC (80.0-100.0); MEAN CORPUSCULAR HGB 26.9 pG CALC (26.0-32.0); MEAN CORPUSCULAR HGB CONC 31.8 g/dL CAL (32.0-36.0); RED BLOOD COUNT 4.65 mill/uL (4.70-6.10); RED CELL DISTRI WIDTH 14.2 % (11.5-15.5)
[2021-06-09 06:03] LABS: ALBUMIN 2.6 g/dL (3.2-5.0); ALKALINE PHOSPHATASE 42 u/l (38-126); ANION GAP 7 (6-22 (CALC)); BILIRUBIN, TOTAL 0.7 mg/dL (0.0-1.4); BUN 15 mg/dL (8-23); BUN/CREATININE RATIO 33 (12-20 (CALC)); CARBON DIOXIDE 26 mmol/l (22-30); CHLORIDE 99 mmol/l (95-108); CREATININE 0.5 mg/dL (0.7-1.3); GFR > 60 ML/MIN (>=60 (CALC)); GFR FOR AFR.AMER. > 60 ML/MIN (>=60 (CALC)); POTASSIUM 4.5 mmol/l (3.5-5.1); SGOT/AST 25 u/l (19-48); SODIUM 127 mmol/l (137-146); TOTAL PROTEIN 5.3 g/dL (6.3-8.2)
--- NOTE | 2021-06-09 07:20 | NUR ---
PT IS ON 3 1.5 OF O2 SAT 97%
[2021-06-09] MEDS ORDERED: DEXAMETHASON6 MG PO (12:26)
--- NOTE | 2021-06-09 16:45 | NUR ---
TRANSPORT ON SITE COLLECTING PT. TELEPHONE REPORT GIVEN TO TINY AT [facility].
--- NOTE | 2021-06-09 16:47 | NUR ---
PLACED ON STRETCHER BY MEDICAL TRANSPORT. SAFELY TRANSPORTED OFF OF UNIT.
== END 2021-06-09 16:47 | DRG 177 ==
LOC: ED 12:01 → ED-I 12:55 → ED 13:25 → MS2 13:26 → ICU 06-06 16:50
PROVIDERS: Family Medicine; Internal Medicine; Nurse Practitioner; ADMIT Hospitalist; ATTEND Internal Medicine
PROC: XW033E5 Introduction of Remdesivir Anti-infective into Peripheral Vein, Percutaneous Approach, New Technology Group 5 (ICD-10-PCS; principal; 2021-06-02)
DX: U07.1 COVID-19 (principal); J12.82 Pneumonia due to coronavirus disease 2019; J96.00 Acute respiratory failure, unspecified whether with hypoxia or hypercapnia; I69.351 Hemiplegia and hemiparesis following cerebral infarction affecting right dominant side; F03.90 Unspecified dementia, unspecified severity, without behavioral disturbance, psychotic disturbance, mood disturbance, and anxiety; I10 Essential (primary) hypertension; E11.9 Type 2 diabetes mellitus without complications; E78.5 Hyperlipidemia, unspecified; I69.322 Dysarthria following cerebral infarction; I69.392 Facial weakness following cerebral infarction; Z86.711 Personal history of pulmonary embolism; Z86.718 Personal history of other venous thrombosis and embolism; Z79.84 Long term (current) use of oral hypoglycemic drugs
CPT/HCPCS: J1650

== ENCOUNTER 2021-10-03 11:27 | Emergency (ER) | payer OTHER, MEDICARE ==
[~2021-10-03] VITALS: Ht 182.9 cm; Wt 100.0 kg
[~2021-10-03 11:27] MED LIST changes: +BROMOCRIPTINE2.5 MG PO; +DEXAMETHASON6 MG PO; +DUTASTERIDE0.5 MG PO; +MYRBETRIQ50 MG PO
[2021-10-03 12:30] LABS: HEMATOCRIT 35.1 % (39.0-50.0); HEMOGLOBIN 10.8 g/dl (14.0-18.0); IMMATURE GRANULOCYTES 0.1 % (0.0-5.0); MEAN CELL VOLUME 92.9 fL CALC (80.0-100.0); MEAN CORPUSCULAR HGB 28.6 pG CALC (26.0-32.0); MEAN CORPUSCULAR HGB CONC 30.8 g/dL CAL (32.0-36.0); NEUT# 5.61 thou/uL (1.82-7.42); RED BLOOD COUNT 3.78 mill/uL (4.70-6.10); RED CELL DISTRI WIDTH 13.9 % (11.5-15.5)
[2021-10-03 12:40] LABS: ALBUMIN 3.1 g/dL (3.2-5.0); ALKALINE PHOSPHATASE 71 u/l (38-126); ANION GAP 14 (6-22 (CALC)); BILIRUBIN, TOTAL 0.4 mg/dL (0.0-1.4); BUN 11 mg/dL (8-23); BUN/CREATININE RATIO 21 (12-20 (CALC)); CARBON DIOXIDE 27 mmol/l (22-30); CHLORIDE 102 mmol/l (95-108); CREATININE 0.5 mg/dL (0.7-1.3); GFR > 60 ML/MIN (>=60 (CALC)); GFR FOR AFR.AMER. > 60 ML/MIN (>=60 (CALC)); POTASSIUM 3.7 mmol/l (3.5-5.1); SGOT/AST 19 u/l (19-48); SODIUM 139 mmol/l (137-146); TOTAL PROTEIN 6.7 g/dL (6.3-8.2)
[2021-10-03 13:15] LABS: AMYLASE 56 u/l (30-110); LIPASE 66 u/l (23-300)
[2021-10-03] MEDS ORDERED: DULCOLAX10 MG RE (17:01)
[2021-10-03 18:50] VITALS: BP 126/66
== END 2021-10-03 18:50 | disposition home or self-care (01) | DRG 395 ==
LOC: ED 11:27
DX: K94.23 Gastrostomy malfunction (principal); Z79.84 Long term (current) use of oral hypoglycemic drugs; I10 Essential (primary) hypertension; E11.9 Type 2 diabetes mellitus without complications; I69.90 Unspecified sequelae of unspecified cerebrovascular disease; Y83.3 Surgical operation with formation of external stoma as the cause of abnormal reaction of the patient, or of later complication, without mention of misadventure at the time of the procedure; Z86.711 Personal history of pulmonary embolism; Z86.718 Personal history of other venous thrombosis and embolism; K59.00 Constipation, unspecified

== ENCOUNTER 2021-10-30 14:10 | Emergency (ER) | payer OTHER, MEDICARE ==
[2021-10-30] VITALS (8 sets, daily range): BP systolic 89–108; BP diastolic 53–64
[~2021-10-30] VITALS: Ht 182.9 cm; Wt 87.3 kg
[~2021-10-30 14:10] MED LIST changes: +DULCOLAX10 MG RE
[2021-10-30 14:43] LABS: HEMATOCRIT 34.2 % (39.0-50.0); HEMOGLOBIN 10.4 g/dl (14.0-18.0); IMMATURE GRANULOCYTES 0.1 % (0.0-5.0); MEAN CORPUSCULAR HGB 27.4 pG CALC (26.0-32.0); MEAN CORPUSCULAR HGB CONC 30.4 g/dL CAL (32.0-36.0); NEUT# 7.6 thou/uL (1.82-7.42); RED BLOOD COUNT 3.8 mill/uL (4.70-6.10); RED CELL DISTRI WIDTH 14.1 % (11.5-15.5)
[2021-10-30 15:05] LABS: ALBUMIN 3.2 g/dL (3.2-5.0); ALKALINE PHOSPHATASE 73 u/l (38-126); ANION GAP 12 (6-22 (CALC)); BILIRUBIN, TOTAL 0.3 mg/dL (0.0-1.4); BUN 12 mg/dL (8-23); BUN/CREATININE RATIO 19 (12-20 (CALC)); CARBON DIOXIDE 30 mmol/l (22-30); CHLORIDE 103 mmol/l (95-108); CREATININE 0.7 mg/dL (0.7-1.3); GFR > 60 ML/MIN (>=60 (CALC)); GFR FOR AFR.AMER. > 60 ML/MIN (>=60 (CALC)); SGOT/AST 19 u/l (19-48); SODIUM 141 mmol/l (137-146); TOTAL PROTEIN 6.9 g/dL (6.3-8.2)
== END 2021-10-30 17:52 | disposition short-term general hospital (02) | DRG 300 ==
LOC: ED 14:10
PROVIDERS: Family Medicine
DX: I82.431 Acute embolism and thrombosis of right popliteal vein (principal); L03.115 Cellulitis of right lower limb; E11.51 Type 2 diabetes mellitus with diabetic peripheral angiopathy without gangrene; I10 Essential (primary) hypertension; Z86.73 Personal history of transient ischemic attack (TIA), and cerebral infarction without residual deficits; Z79.84 Long term (current) use of oral hypoglycemic drugs; Z95.828 Presence of other vascular implants and grafts; Z86.79 Personal history of other diseases of the circulatory system
CPT/HCPCS: J1644

== ENCOUNTER 2021-12-12 22:08 | Observation (INO) | payer OTHER, MEDICARE ==
[~2021-12-12] VITALS: Ht 182.9 cm; Wt 70.0 kg
[~2021-12-12 22:08] MED LIST changes: +BACLOFEN10 MG VT; -BROMOCRIPTINE2.5 MG PO; +BROMOCRIPTINE2.5 MG VT; -CORRECTOL100 MG PO; +CORRECTOL100 MG VT; -EQL VITAMIN B500 MCG PO; +EQL VITAMIN B500 MCG VT; +GABAPENTIN600 MG VT; -LEVETIRACETAM500 M1 PO; +LEVETIRACETAM500 M1 VT; -METFORMIN HYDR850 MG PO; +METFORMIN HYDR850 MG VT; -TYLENOL325 M2 PO; +TYLENOL325 M2 VT
[2021-12-12 22:12] VITALS: BP 124/61
[2021-12-12 22:30] VITALS: BP 144/87
[2021-12-12 22:38] LABS: HEMATOCRIT 32.9 % (39.0-50.0); HEMOGLOBIN 10.3 g/dl (14.0-18.0); IMMATURE GRANULOCYTES 0.1 % (0.0-5.0); MEAN CELL VOLUME 85.7 fL CALC (80.0-100.0); MEAN CORPUSCULAR HGB 26.8 pG CALC (26.0-32.0); MEAN CORPUSCULAR HGB CONC 31.3 g/dL CAL (32.0-36.0); NEUT# 6.61 thou/uL (1.82-7.42); RED BLOOD COUNT 3.84 mill/uL (4.70-6.10); RED CELL DISTRI WIDTH 16.4 % (11.5-15.5)
[2021-12-12 22:46] LABS: ALBUMIN 3.3 g/dL (3.2-5.0); ALKALINE PHOSPHATASE 75 u/l (38-126); ANION GAP 11 (6-22 (CALC)); BILIRUBIN, TOTAL 0.4 mg/dL (0.0-1.4); BUN 9 mg/dL (8-23); BUN/CREATININE RATIO 13 (12-20 (CALC)); CARBON DIOXIDE 35 mmol/l (22-30); CHLORIDE 95 mmol/l (95-108); CREATININE 0.7 mg/dL (0.7-1.3); GFR > 60 ML/MIN (>=60 (CALC)); GFR FOR AFR.AMER. > 60 ML/MIN (>=60 (CALC)); SGOT/AST 19 u/l (19-48); SODIUM 139 mmol/l (137-146); TOTAL PROTEIN 6.7 g/dL (6.3-8.2)
[2021-12-12 22:48] LABS: POTASSIUM 2.3 mmol/l (3.5-5.1)
[2021-12-12 22:58] LABS: MYOGLOBIN 60 ng/mL (0 - 121)
[2021-12-12 23:00] VITALS: BP 128/70
[2021-12-12 23:30] VITALS: BP 139/73
[2021-12-13] VITALS (72 sets, daily range): BP systolic 112–153; BP diastolic 6–91
[2021-12-13] MEDS ORDERED: ELIQUIS5 MG PO (11:43)
[2021-12-13] MEDS ORDERED: ASPIRINCHW 81MG PO (11:44)
[2021-12-13] MEDS ORDERED: CARAFATE1 GM/10 ML PO (11:48)
[2021-12-13] MEDS ORDERED: LORTAB 1010 MG PO (11:51)
[2021-12-13] MEDS ORDERED: ATORVASTATIN CA80 MG VT (11:52)
[2021-12-13] MEDS ORDERED: FINASTERIDE5 MG VT (11:57)
[2021-12-13] MEDS ORDERED: FLONASE AL50 MCG/AC1 NS (11:59)
[2021-12-13] MEDS ORDERED: LASIX 40 MG TAB40 MG VT (12:00)
[2021-12-13] MEDS ORDERED: METOPROL TAR25 MG PO (12:02)
[2021-12-13] MEDS ORDERED: ONDANSETRON4 MG PO (12:03)
[2021-12-13] MEDS ORDERED: PROTONIX40 M2 PO (12:04)
[2021-12-13] MEDS ORDERED: KLOR-CON M2020 MEQ VT (12:06)
[2021-12-13] MEDS ORDERED: SERTRALINE50 MG PO (12:07)
[2021-12-13] MEDS ORDERED: SPIRONOLACTONE25 MG VT (12:15)
[2021-12-13 13:09] LABS: ANION GAP 9 (6-22 (CALC)); BUN 7 mg/dL (8-23); BUN/CREATININE RATIO 13 (12-20 (CALC)); CARBON DIOXIDE 31 mmol/l (22-30); CHLORIDE 103 mmol/l (95-108); CREATININE 0.6 mg/dL (0.7-1.3); GFR > 60 ML/MIN (>=60 (CALC)); GFR FOR AFR.AMER. > 60 ML/MIN (>=60 (CALC)); POTASSIUM 2.7 mmol/l (3.5-5.1); SODIUM 141 mmol/l (137-146)
[2021-12-13 13:21] LABS: MAGNESIUM 1.2 mg/dL (1.6-2.3)
[2021-12-13 18:54] LABS: URINE BILIRUBIN - DIPSTICK NEGATIVE (NEGATIVE); URINE BLOOD DIPSTICK NEGATIVE (NEGATIVE); URINE COLOR YELLOW; URINE GLUCOSE - DIPSTICK NEGATIVE (NEGATIVE); URINE KETONE NEGATIVE (NEGATIVE); URINE LEUK ESTERASE NEGATIVE (NEGATIVE); URINE NITRITE - DIPSTICK NEGATIVE (Negative); URINE PROTEIN - DIPSTICK NEGATIVE (NEG-TRACE); URINE SPECIFIC GRAVITY >=1.030; URINE UROBILINOGEN - DIPSTICK 0.2 E.U./dL (0.2)
[2021-12-14] VITALS (59 sets, daily range): BP systolic 123–158; BP diastolic 66–100
[2021-12-14 04:56] LABS: HEMATOCRIT 30.4 % (39.0-50.0); HEMOGLOBIN 9.4 g/dl (14.0-18.0); MEAN CELL VOLUME 85.4 fL CALC (80.0-100.0); MEAN CORPUSCULAR HGB 26.4 pG CALC (26.0-32.0); MEAN CORPUSCULAR HGB CONC 30.9 g/dL CAL (32.0-36.0); RED BLOOD COUNT 3.56 mill/uL (4.70-6.10)
[2021-12-14 05:17] LABS: BUN 5 mg/dL (8-23); BUN/CREATININE RATIO 11 (12-20 (CALC)); CARBON DIOXIDE 28 mmol/l (22-30); CHLORIDE 106 mmol/l (95-108); CREATININE 0.5 mg/dL (0.7-1.3); GFR > 60 ML/MIN (>=60 (CALC)); GFR FOR AFR.AMER. > 60 ML/MIN (>=60 (CALC)); SODIUM 139 mmol/l (137-146)
[2021-12-14 05:19] LABS: ANION GAP 9 (6-22 (CALC)); MAGNESIUM 1.7 mg/dL (1.6-2.3); POTASSIUM 3.7 mmol/l (3.5-5.1)
== END 2021-12-14 14:50 | disposition home or self-care (01) | DRG 641 ==
LOC: ED 22:08 → ED-I 22:39 → ED 22:39 → ED-I 12-13 04:15 → ED 12-13 05:00 → ICU 12-13 05:01
PROVIDERS: Emergency Medicine; ADMIT Hospitalist; ATTEND Hospitalist
DX: E87.6 Hypokalemia (principal); I69.351 Hemiplegia and hemiparesis following cerebral infarction affecting right dominant side; E83.42 Hypomagnesemia; I69.320 Aphasia following cerebral infarction; I10 Essential (primary) hypertension; E11.9 Type 2 diabetes mellitus without complications; E78.5 Hyperlipidemia, unspecified; F03.90 Unspecified dementia, unspecified severity, without behavioral disturbance, psychotic disturbance, mood disturbance, and anxiety; Z86.711 Personal history of pulmonary embolism; Z86.718 Personal history of other venous thrombosis and embolism; Z79.84 Long term (current) use of oral hypoglycemic drugs; Z79.01 Long term (current) use of anticoagulants; Z20.822 Contact with and (suspected) exposure to COVID-19
CPT/HCPCS: J3475